=== PATIENT | male | born 1990 | race Two or more races ===

== ENCOUNTER 2024-06-13 12:44 | Inpatient (IN) | payer OTHER ==
[2024-06-13 12:58] VITALS: BMI 25.2
[2024-06-13] MEDS ORDERED: BENZOCAINE/MENTHOL (CHLORASEPTIC ) LOZENGE MM PRN (13:11)
[2024-06-13] MEDS ORDERED: POLYETHYLENE GLYCOL (HEALTHYLAX) 3350 17 GM PACKET PO PRN (13:11)
[2024-06-13] MEDS ORDERED: MAG HYDROX/AL HYDROX/SIMETH 30 ML UNIT-DOSE CUP PO PRN (13:11)
[2024-06-13] MEDS ORDERED: guaiFENesin 600 MG TABLET.ER (FP) PO PRN (13:11)
[2024-06-13] MEDS ORDERED: IBUPROFEN 400 MG TABLET (FP) PO PRN (13:11)
[2024-06-13] MEDS ORDERED: BISMUTH SUBSALICYLATE 524 MG/30 ML PO PRN (13:11)
[2024-06-13] MEDS ORDERED: BENZONATATE 200 MG CAPSULE PO PRN (13:11)
[2024-06-13] MEDS ORDERED: ONDANSETRON *ODT* 4 MG TABLET SL PRN (13:11)
[2024-06-13] MEDS ORDERED: DICYCLOMINE HCL 10 MG CAPSULE PO PRN (13:11)
[2024-06-13] MEDS ORDERED: MAGNESIUM HYDROX 2400MG/30ML ORAL SUSPENSION 30 ML CUP PO PRN (13:11)
[2024-06-13] MEDS ORDERED: LOPERAMIDE HCL 2 MG CAPSULE PO PRN (13:11)
[2024-06-13] MEDS: chlordiazePOXIDE HCL 25 MG CAPSULE PO SCH (17:25)
[2024-06-13] MEDS: METHOCARBAMOL 500 MG TABLET PO PRN (18:15)
[2024-06-13] MEDS: chlordiazePOXIDE HCL 25 MG CAPSULE PO PRN (19:57)
[2024-06-13] MEDS: TRIMETHOBENZAMIDE HCL 200MG/2ML INJ IM ONE (22:53)
[2024-06-13] MEDS: traZODone HCL 50 MG TABLET (FP) PO ONE (23:44)
[2024-06-13] MEDS: THIAMINE 100 MG TABLET PO SCH (23:44)
[2024-06-13] MEDS: MELATONIN 5 MG TABLETS PO SCH (23:45)
[2024-06-14] MEDS: PRENATAL VITAMINS W/ FOLIC ACID TABLET (FP) PO SCH (10:30)
[2024-06-14] MEDS: IBUPROFEN 600 MG TABLET (FP) PO PRN (17:19)
[2024-06-14] MEDS: traZODone HCL 100 MG TABLET (FP) PO SCH (22:04)
[2024-06-15] MEDS: chlordiazePOXIDE HCL 25 MG CAPSULE PO SCH (05:32)
[2024-06-15] MEDS: ACETAMINOPHEN 325 MG TABLET (FP) PO PRN (17:22)
[2024-06-16] MEDS ORDERED: chlordiazePOXIDE HCL 10 MG CAPSULE PO PRN
[2024-06-16] MEDS: chlordiazePOXIDE HCL 10 MG CAPSULE PO SCH (05:31)
[2024-06-16 12:35] LABS: HEMATOCRIT 42.3 % (35.4-49); MCH 30.9 pg (25.7-33.7); MCHC 33.1 g/dl (32.0-35.9); MEAN CELL VOLUME 93.4 fl (80-96); MEAN PLT VOLUME 7.7 fl (7.5-11.1); PLATELET COUNT 282 10^3/uL (134-434); RBC 4.53 M/mm3 (4.00-5.60); RDW 13.4 % (11.9-15.9)
[2024-06-16 14:15] LABS: POTASSIUM 4.3 mmol/L (3.5-5.1)
[2024-06-16 14:21] LABS: CALCIUM 9.6 mg/dL (8.5-10.1)
[2024-06-16 14:23] LABS: ALBUMIN 3.9 g/dl (3.4-5.0)
[2024-06-16 14:26] LABS: BILIRUBIN,TOTAL 0.4 mg/dL (0.2-1); TOT PROT 7.3 g/dl (6.4-8.2)
[2024-06-17] MEDS: chlordiazePOXIDE HCL 10 MG CAPSULE PO SCH (05:58)
[2024-06-18] MEDS: chlordiazePOXIDE HCL 10 MG CAPSULE PO ONE (05:50)
[2024-06-18 08:51] VITALS: BP 117/82; PULSE 76; RESP 18; TEMP 97.8
== END 2024-06-18 11:35 | disposition home or self-care (01) | DRG 775 ==
LOC: YASAS 12:44 → Y6N 13:30
PROVIDERS: ADMIT Neuromusculoskeletal Medicine & OMM; ATTEND Neuromusculoskeletal Medicine & OMM
PROC: HZ2ZZZZ Detoxification Services for Substance Abuse Treatment (ICD-10-PCS; principal; 2024-06-13)
DX: F10.230 Alcohol dependence with withdrawal, uncomplicated (principal); F10.280 Alcohol dependence with alcohol-induced anxiety disorder; F10.282 Alcohol dependence with alcohol-induced sleep disorder; F10.24 Alcohol dependence with alcohol-induced mood disorder; F32.A Depression, unspecified; G47.00 Insomnia, unspecified; Z62.810 Personal history of physical and sexual abuse in childhood; Z63.8 Other specified problems related to primary support group
CPT/HCPCS: 36415; 80053; 80305; 80307; 85027; 86780; 93005; 93010

== ENCOUNTER 2024-09-15 15:03 | Inpatient (IN) | payer OTHER ==
[2024-09-15 15:40] VITALS: BMI 26.6
[2024-09-15] MEDS ORDERED: chlordiazePOXIDE HCL 25 MG CAPSULE PO PRN (16:33)
[2024-09-15] MEDS ORDERED: IBUPROFEN 400 MG TABLET (FP) PO PRN (16:43)
[2024-09-15] MEDS ORDERED: MAGNESIUM HYDROX 2400MG/30ML ORAL SUSPENSION 30 ML CUP PO PRN (16:43)
[2024-09-15] MEDS ORDERED: LOPERAMIDE HCL 2 MG CAPSULE PO PRN (16:43)
[2024-09-15] MEDS ORDERED: POLYETHYLENE GLYCOL (HEALTHYLAX) 3350 17 GM PACKET PO PRN (16:43)
[2024-09-15] MEDS ORDERED: NALOXONE (NARCAN) HCL 4 MG/0.1 ML SPRAY NS PRN (16:43)
[2024-09-15] MEDS ORDERED: MAG HYDROX/AL HYDROX/SIMETH 30 ML UNIT-DOSE CUP PO PRN (16:43)
[2024-09-15] MEDS ORDERED: ONDANSETRON *ODT* 4 MG TABLET SL PRN (16:43)
[2024-09-15] MEDS ORDERED: BISMUTH SUBSALICYLATE 524 MG/30 ML PO PRN (16:43)
[2024-09-15] MEDS ORDERED: DICYCLOMINE HCL 10 MG CAPSULE PO PRN (16:43)
[2024-09-15] MEDS ORDERED: propRANOLol HCL 10 MG TABLET ONE (18:44)
[2024-09-15] MEDS ORDERED: chlordiazePOXIDE HCL 25 MG CAPSULE ONE (18:44)
[2024-09-15] MEDS: chlordiazePOXIDE HCL 25 MG CAPSULE PO SCH (18:46)
[2024-09-15] MEDS: propRANOLol HCL 10 MG TABLET PO ONE (18:48)
[2024-09-15] MEDS: THIAMINE 100 MG TABLET PO SCH (22:15)
[2024-09-15] MEDS: levETIRAcetam 500 MG TABLET (FP) PO SCH (22:15)
[2024-09-15] MEDS: MELATONIN 5 MG TABLETS PO SCH (22:15)
[2024-09-15] MEDS: METHOCARBAMOL 500 MG TABLET PO PRN (22:16)
[2024-09-15] MEDS: guaiFENesin 600 MG TABLET.ER (FP) PO PRN (23:33)
[2024-09-16] MEDS: BENZOCAINE/MENTHOL (CHLORASEPTIC ) LOZENGE MM PRN (01:03)
[2024-09-16] MEDS: BENZONATATE 200 MG CAPSULE PO PRN (01:03)
[2024-09-16] MEDS: hydrOXYzine PAMOATE 25 MG CAPSULE (FP) PO PRN (01:03)
[2024-09-16] MEDS: PRENATAL VITAMINS W/ FOLIC ACID TABLET (FP) PO SCH (10:08)
[2024-09-16] MEDS: ACETAMINOPHEN 325 MG TABLET (FP) PO PRN (10:11)
[2024-09-16 11:40] LABS: HEMATOCRIT 44.5 % (35.4-49); HEMOGLOBIN 14.5 GM/dL (11.7-16.9); MCH 30.2 pg (25.7-33.7); MCHC 32.5 g/dl (32.0-35.9); MEAN PLT VOLUME 7.3 fl (7.5-11.1); PLATELET COUNT 299 10^3/uL (134-434); RBC 4.79 M/mm3 (4.00-5.60); RDW 13.8 % (11.9-15.9); WHITE BLOOD COUNT 5.2 K/mm3 (4.0-10.0)
[2024-09-16 11:41] LABS: POTASSIUM 3.9 mmol/L (3.5-5.1)
[2024-09-16 11:47] LABS: CALCIUM 9.5 mg/dL (8.5-10.1)
[2024-09-16 11:48] LABS: ALBUMIN 3.9 g/dl (3.4-5.0); BLOOD UREA NITROGEN 11.4 mg/dL (7-18)
[2024-09-16 11:51] LABS: BILIRUBIN,TOTAL 0.5 mg/dL (0.2-1); CREATININE 1.1 mg/dL (0.55-1.3); TOT PROT 7.4 g/dl (6.4-8.2)
[2024-09-16] MEDS: IBUPROFEN 600 MG TABLET (FP) PO PRN (17:22)
[2024-09-16] MEDS: traZODone HCL 100 MG TABLET (FP) PO PRN (22:03)
[2024-09-16] MEDS: guaiFENesin 200 MG/10 ML 10 ML UNIT-DOSE CUPS PO PRN (22:06)
[2024-09-17] MEDS: chlordiazePOXIDE HCL 25 MG CAPSULE PO SCH (05:23)
[2024-09-17] MEDS: P-EPHED 60MG/TRIPROLIDI 2.5MG TABLET PO PRN (05:26)
[2024-09-18] MEDS ORDERED: chlordiazePOXIDE HCL 10 MG CAPSULE PO PRN
[2024-09-18] MEDS: chlordiazePOXIDE HCL 10 MG CAPSULE PO SCH (05:51)
[2024-09-18 09:31] VITALS: RESP 18
[2024-09-18 12:54] VITALS: BP 140/99; PULSE 97; TEMP 98.7
[2024-09-18] MEDS ORDERED: NALOXONE (NYS OPIOID OVERDOSE PROGRAM) 4 MG/0.1 ML SPRAY NS SCH (14:00)
[2024-09-19] MEDS ORDERED: chlordiazePOXIDE HCL 10 MG CAPSULE PO SCH (05:00)
[2024-09-20] MEDS ORDERED: chlordiazePOXIDE HCL 10 MG CAPSULE PO ONE (05:00)
== END 2024-09-18 13:58 | disposition home or self-care (01) | DRG 775 ==
LOC: YASAS 15:03 → Y3N 19:35
PROVIDERS: ADMIT Allergy & Immunology; ATTEND Surgery
PROC: HZ2ZZZZ Detoxification Services for Substance Abuse Treatment (ICD-10-PCS; principal; 2024-09-15)
DX: F10.230 Alcohol dependence with withdrawal, uncomplicated (principal); F33.9 Major depressive disorder, recurrent, unspecified; G47.00 Insomnia, unspecified
CPT/HCPCS: 36415; 80053; 85027; 86780; 86803

== ENCOUNTER 2024-12-01 10:25 | Inpatient (IN) | payer OTHER ==
[2024-12-01 10:54] VITALS: BMI 29.0
[2024-12-01] MEDS ORDERED: chlordiazePOXIDE HCL 25 MG CAPSULE PO PRN (12:04)
[2024-12-01] MEDS ORDERED: NICOTINE POLACRILEX 2 MG LOZENGE BC PRN (12:09)
[2024-12-01] MEDS ORDERED: ONDANSETRON *ODT* 4 MG TABLET SL PRN (12:09)
[2024-12-01] MEDS ORDERED: IBUPROFEN 400 MG TABLET (FP) PO PRN (12:09)
[2024-12-01] MEDS ORDERED: MAG HYDROX/AL HYDROX/SIMETH 30 ML UNIT-DOSE CUP PO PRN (12:09)
[2024-12-01] MEDS ORDERED: BENZOCAINE/MENTHOL (CHLORASEPTIC ) LOZENGE MM PRN (12:09)
[2024-12-01] MEDS ORDERED: POLYETHYLENE GLYCOL (HEALTHYLAX) 3350 17 GM PACKET PO PRN (12:09)
[2024-12-01] MEDS ORDERED: NICOTINE POLACRILEX 2 MG GUM BUC PRN (12:09)
[2024-12-01] MEDS ORDERED: guaiFENesin 600 MG TABLET.ER (FP) PO PRN (12:09)
[2024-12-01] MEDS ORDERED: NALOXONE (NARCAN) HCL 4 MG/0.1 ML SPRAY NS PRN (12:09)
[2024-12-01] MEDS ORDERED: P-EPHED 60MG/TRIPROLIDI 2.5MG TABLET PO PRN (12:09)
[2024-12-01] MEDS ORDERED: BENZONATATE 200 MG CAPSULE PO PRN (12:09)
[2024-12-01] MEDS ORDERED: MAGNESIUM HYDROX 2400MG/30ML ORAL SUSPENSION 30 ML CUP PO PRN (12:09)
[2024-12-01] MEDS ORDERED: BISMUTH SUBSALICYLATE 524 MG/30 ML PO PRN (12:09)
[2024-12-01] MEDS ORDERED: DICYCLOMINE HCL 10 MG CAPSULE PO PRN (12:09)
[2024-12-01] MEDS ORDERED: LOPERAMIDE HCL 2 MG CAPSULE PO PRN (12:09)
[2024-12-01] MEDS ORDERED: diazePAM 5 MG TABLET ONE (12:58)
[2024-12-01] MEDS: chlordiazePOXIDE HCL 25 MG CAPSULE PO ONE (13:24)
[2024-12-01] MEDS ORDERED: chlordiazePOXIDE HCL 25 MG CAPSULE PO SCH (17:00)
[2024-12-01] MEDS: ACETAMINOPHEN 325 MG TABLET (FP) PO PRN (17:26)
[2024-12-01] MEDS: diazePAM 5 MG TABLET PO SCH (17:27)
[2024-12-01] MEDS: THIAMINE 100 MG TABLET PO SCH (22:12)
[2024-12-01] MEDS: IBUPROFEN 600 MG TABLET (FP) PO PRN (22:12)
[2024-12-01] MEDS: METHOCARBAMOL 500 MG TABLET PO PRN (22:13)
[2024-12-01] MEDS: MELATONIN 5 MG TABLETS PO SCH (22:13)
[2024-12-01] MEDS: traZODone HCL 50 MG TABLET (FP) PO ONE (22:27)
[2024-12-02] MEDS: diazePAM 5 MG TABLET PO PRN (07:15)
[2024-12-02] MEDS: PRENATAL VITAMINS W/ FOLIC ACID TABLET (FP) PO SCH (10:00)
[2024-12-02 11:07] LABS: HEMATOCRIT 40.7 % (40.1-51.0); HEMOGLOBIN 13.3 g/dL (13.7-17.5); MCHC 32.7 g/dl (32.3-36.5); MEAN CELL VOLUME 91.7 fl (79.0-92.2); PLATELET COUNT 159 x10^3/uL (163-337); RDW 13.1 % (12.0-15.6)
[2024-12-02 11:13] LABS: POTASSIUM 4.1 mmol/L (3.5-5.1)
[2024-12-02 11:15] LABS: ALBUMIN 3.7 g/dl (3.4-5.0); BLOOD UREA NITROGEN 13.1 mg/dL (7-18); CALCIUM 9.1 mg/dL (8.5-10.1)
[2024-12-02 11:19] LABS: CREATININE 0.9 mg/dL (0.55-1.3)
[2024-12-02 11:20] LABS: BILIRUBIN,TOTAL 0.6 mg/dL (0.2-1); TOT PROT 6.8 g/dl (6.4-8.2)
[2024-12-02] MEDS: traZODone HCL 100 MG TABLET (FP) PO SCH (23:57)
[2024-12-03] MEDS ORDERED: chlordiazePOXIDE HCL 25 MG CAPSULE PO SCH (05:00)
[2024-12-03] MEDS: diazePAM 5 MG TABLET PO SCH (05:35)
[2024-12-04] MEDS ORDERED: chlordiazePOXIDE HCL 10 MG CAPSULE PO PRN
[2024-12-04] MEDS ORDERED: chlordiazePOXIDE HCL 10 MG CAPSULE PO SCH (05:00)
[2024-12-04] MEDS: diazePAM 5 MG TABLET PO SCH (05:31)
[2024-12-05] MEDS ORDERED: chlordiazePOXIDE HCL 10 MG CAPSULE PO SCH (05:00)
[2024-12-05] MEDS: diazePAM 5 MG TABLET PO ONE (05:33)
[2024-12-05 09:15] VITALS: BP 119/82; PULSE 91; RESP 18; TEMP 97.7
[2024-12-06] MEDS ORDERED: chlordiazePOXIDE HCL 10 MG CAPSULE PO ONE (05:00)
== END 2024-12-05 11:04 | disposition home or self-care (01) | DRG 775 ==
LOC: YASAS 10:25 → Y3N 12:53
PROVIDERS: ADMIT Allergy & Immunology; ATTEND Allergy & Immunology
PROC: HZ2ZZZZ Detoxification Services for Substance Abuse Treatment (ICD-10-PCS; principal; 2024-12-01)
DX: F10.230 Alcohol dependence with withdrawal, uncomplicated (principal); F17.210 Nicotine dependence, cigarettes, uncomplicated; F19.24 Other psychoactive substance dependence with psychoactive substance-induced mood disorder; G47.00 Insomnia, unspecified; R74.01 Elevation of levels of liver transaminase levels
CPT/HCPCS: 36415; 80053; 80305; 80307; 85027; 86780